=== PATIENT | male | born 1975 | race Caucasian/White ===

== ENCOUNTER 2020-08-02 00:20 | Emergency (ER) | payer OTHER ==
[~2020-08-02] VITALS: Ht 185.4 cm; Wt 107.0 kg
[~2020-08-02 00:20] MED LIST: GABAPENTIN600 MG; LAMICTAL100 MG PO; NORCO 5-325 TA1 EACH PO; VIIBRYD40 MG PO
[2020-08-02] MEDS ORDERED: HYDROCODON-ACE1 EA10 PO (00:55)
[2020-08-02] MEDS ORDERED: TAMSULOSIN HCL0.4 MG PO (00:56)
== END 2020-08-02 03:27 | disposition home or self-care (01) ==
LOC: ED 00:20
DX: N20.0 Calculus of kidney (principal); R94.5 Abnormal results of liver function studies; R11.2 Nausea with vomiting, unspecified; Z88.5 Allergy status to narcotic agent; Z79.899 Other long term (current) drug therapy
CPT/HCPCS: 74176; 80053; 81001; 85025; 96374; 96375; 96376; 99284-25; J1885; J2270; J2405; J2550; J7030

== ENCOUNTER 2020-08-30 17:00 | Emergency (ER) | payer OTHER ==
[~2020-08-30] VITALS: Ht 185.4 cm; Wt 107.0 kg
[~2020-08-30 17:00] MED LIST changes: +HYDROCODON-ACE1 EA10 PO; +TAMSULOSIN HCL0.4 MG PO
--- OUTSIDE RECORDS SUMMARY | 2020-08-30 17:04 | XMS ---
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 - 2 Visits in 30 Days CARE PROVIDERS There are no care providers on record at this time. Lyle has no Care Guidelines for this patient. [facility] NOTE: Visits indicate total known visits. [place] [place] (12 MO.) 08/30/2020 17:01 [facility] TYPE: Emergency COMPLAINT: - VOMITING 08/02/2020 00:21 [facility] TYPE: Emergency COMPLAINT: - BACK PAIN,NAUSEA DIAGNOSES: - Calculus of kidney - Other chcf (current) drug therapy - Allergy status to narcotic agent - Abnormal results of liver function studies - Nausea with vomiting, unspecified - Unspecified abdominal pain INPATIENT VISIT TRACKING (12 MO.) No inpatient visits to display in this time frame [email or web address]
[2020-08-30] MEDS ORDERED: WELLBUTRIN SR100 MG PO (17:53)
[2020-08-30] MEDS ORDERED: ZOFRAN4 MG PO (19:06)
[2020-08-30] MEDS ORDERED: DICYCLOMINE HCL20 MG PO (19:06)
== END 2020-08-30 19:20 | disposition home or self-care (01) ==
LOC: ED 17:00
DX: K52.9 Noninfective gastroenteritis and colitis, unspecified (principal); Z88.5 Allergy status to narcotic agent; Z79.899 Other long term (current) drug therapy
CPT/HCPCS: 80053; 83690; 85025; 96374; 96375; 99284-25; J1885; J2405